=== PATIENT | female | born 1975 | race Two or more races ===

== ENCOUNTER 2022-04-13 11:59 | Emergency (ER) | payer SELFPAY ==
[~2022-04-13] VITALS: Ht 160 cm; Wt 77.1 kg
[~2022-04-13 11:59] MED LIST: no meds
--- NOTE | 2022-04-13 12:15 | NUR ---
BIBS C/O R SHOULDER PAIN THAT STARTED A WEEK AGO. PT DENIES ANY TRAUMA. LIMITED RANGE OF MOTION WITH GOOD CMS. UNILATERAL SWELLING IN THE RIGHT HAND IN ARM NOTED. PT AMBULATED TO BED WITH STEADY GAIT. AAOX4. VSS. BEATHING EVEN AND UNLABORED. AWAITING MD ORDERS.
[2022-04-13] MEDS ORDERED: KETOROLAC TROMETHAMINE INJ 30 MG/ML VIAL ONE (12:57)
[2022-04-13] MEDS ORDERED: KETOROLAC TROMETHAMINE INJ 60 MG/2 ML VIAL IM ONE (13:00)
--- NOTE | 2022-04-13 13:07 | NUR ---
SECTIONIZER AT BEDSIDE.
[2022-04-13] MEDS ORDERED: IBUP-1955 PO (15:23)
[2022-04-13] MEDS ORDERED: HYDR-3976 PO (15:23)
--- NOTE | 2022-04-13 15:38 | NUR ---
Patient discharged to home in stable condition. Written and verbal after care instructions given. Patient verbalizes understanding of instruction.
[2022-04-13 15:40] VITALS: BP 117/75
== END 2022-04-13 15:40 | disposition home or self-care (01) ==
LOC: ER 12:00
DX: M75.31 Calcific tendinitis of right shoulder (principal); M25.511 Pain in right shoulder; Z88.8 Allergy status to other drugs, medicaments and biological substances; Z79.899 Other long term (current) drug therapy
CPT/HCPCS: 99285; 73200; 93971; 96372; J1885